=== PATIENT | female | born 1985 | race Two or more races ===

== ENCOUNTER 2018-01-18 23:27 | Inpatient (IN) | payer MEDICAID ==
[~2018-01-18] VITALS: Ht 160 cm; Wt 102.0 kg
[2018-01-19] MEDS ORDERED: TERBUTALINE 1 MG/ML, 1ML ONE (00:30)
[2018-01-19] MEDS ORDERED: TERBUTALINE 1 MG/ML, 1ML SQ ONE (00:30)
[2018-01-19] MEDS ORDERED: BETAMETHASONE 6 MG/ML, 5ML IM ONE (00:32)
[2018-01-19] MEDS: BETAMETHASONE 6 MG/ML, 5ML IM SCH (00:58)
[2018-01-19] MEDS ORDERED: PLEASE ENTER HEIGHT AND WEIGHT MC SCH (01:00)
[2018-01-19 08:51] VITALS: BP 105/57
[2018-01-19] MEDS ORDERED: DOCUSATE 100 MG CAPSULE PO SCH (21:00)
[2018-01-20] MEDS: BETAMETHASONE 6 MG/ML, 5ML IM SCH (01:19)
[2018-01-20] MEDS ORDERED: DOCUSATE 100 MG CAPSULE ONE (07:45)
[2018-01-20] MEDS ORDERED: PRENATAL VIT/IRON/FA 1 EACH TABLET ONE (07:45)
[2018-01-20 07:50] VITALS: BP 113/60
[2018-01-20] MEDS ORDERED: PRENATAL VIT/IRON/FA 1 EACH TABLET PO SCH (09:00)
[2018-01-20] MEDS ORDERED: INSULIN NPH HUMAN 100 UNIT/ML, 3ML VIAL SQ-INSULIN ONE (13:30)
== END 2018-01-20 15:10 | disposition home or self-care (01) | DRG 782 ==
LOC: LDOP 23:27 → LDIP 01-19 00:32
PROVIDERS: ADMIT Obstetrics & Gynecology; ATTEND Obstetrics & Gynecology
DX: O26.873 Cervical shortening, third trimester (principal); Z3A.28 28 weeks gestation of pregnancy
CPT/HCPCS: 36415; 76815; 82951; 82962; J0702; J1815; J3105

== ENCOUNTER 2018-01-23 07:46 | Inpatient (IN) | payer MEDICAID ==
[~2018-01-23] VITALS: Ht 160 cm; Wt 102.3 kg
[2018-01-23] MEDS ORDERED: LACTATED RINGERS 1,000 ML IV SCH (08:00)
[2018-01-23] MEDS ORDERED: LACTATED RINGERS 1,000 ML IVBOLUS ONE (08:00)
[2018-01-23] MEDS ORDERED: MAGNESIUM SULFATE PMX 4GM/100M 100 ML IVPB ONE ×2 (08:00)
[2018-01-23] MEDS ORDERED: MAGNESIUM SULF. PMX 20GM/500ML 500 ML IV ONE ×2 (08:09→16:47)
[2018-01-23] MEDS ORDERED: ONDANSETRON 2MG/ML, 2ML ONE (08:09)
[2018-01-23] MEDS ORDERED: PLEASE ENTER HEIGHT AND WEIGHT MC SCH (08:30)
[2018-01-23] MEDS ORDERED: ONDANSETRON 2MG/ML, 2ML IVPush PRN (08:30)
[2018-01-23 08:48] LABS: BASOPHILS # (AUTO) 0.04 x10^3/uL (0-0.1); BASOPHILS % (AUTO) 0 % (0-1); EOSINOPHILS # (AUTO) 0.17 x10^3/uL (0-0.4); EOSINOPHILS % (AUTO) 2 % (1-7); LYMPHOCYTES # (AUTO) 2.17 x10^3/uL (1-3.4); LYMPHOCYTES % (AUTO) 20 % (22-44); MD NO; MEAN CORPUSCULAR HEMOGLOBIN 29.3 pg (27.0-34.8); MEAN CORPUSCULAR HGB CONC 33.9 g/dL (32.4-35.8); MEAN CORPUSCULAR VOLUME 86.3 fL (80-100); MEAN PLATELET VOLUME 8.2 fL (7.4-10.4); MONOCYTES # (AUTO) 0.75 x10^3/uL (0.2-0.8); MONOCYTES % (AUTO) 7 % (2-9); NEUTROPHILS # (AUTO) 7.55 x10^3/uL (1.8-6.8); NEUTROPHILS % (AUTO) 71 % (42-75); PLATELET COUNT 332 x10^3/uL (130-400); RED BLOOD COUNT 4.45 x10^6/uL (3.82-5.3); RED CELL DISTRIBUTION WIDTH 13.1 % (9.6-15.2)
[2018-01-23 14:48] LABS: AMPHETAMINE SCREEN, URINE Negative (Negative); BARBITURATE SCREEN, URINE Negative (Negative); BENZODIAZEPINE SCREEN, URINE Negative (Negative); CANNABINOID SCREEN, URINE Negative (Negative); COCAINE SCREEN, URINE Negative (Negative); METHADONE SCREEN, URINE Negative (Negative); OPIATE SCREEN, URINE Negative (Negative)
[2018-01-23] MEDS: MAGNESIUM SULF. PMX 20GM/500ML 500 ML IV SCH ×2 (16:55→17:49)
[2018-01-23 20:20] VITALS: BP 125/71
[2018-01-23] MEDS ORDERED: AMPICILLIN 2 GM in SODIUM CHLORIDE 0.9% 100 ML IVPB STA (21:04)
[2018-01-23] MEDS ORDERED: AMPICILLIN 1 GM in SODIUM CHLORIDE 0.9% 100 ML IVPB SCH (21:30)
[2018-01-23] MEDS ORDERED: ERYTHROMYCIN 250 MG in SODIUM CHLORIDE 0.9% 100 ML IV SCH (21:30)
[2018-01-23] MEDS: AMPICILLIN 2 GM in SODIUM CHLORIDE 0.9% 100 ML IV SCH (21:30)
[2018-01-23 22:25] LABS: CULTURE INDICATED? YES; MICROSCOPIC INDICATED
[2018-01-23] MEDS: AZITHROMYCIN 500 MG in SODIUM CHLORIDE 0.9% 250 ML IV SCH (23:11)
[2018-01-24] MEDS ORDERED: MAGNESIUM SULF. PMX 20GM/500ML 500 ML IV ONE ×3 (01:15→23:14)
[2018-01-24] MEDS: MAGNESIUM SULF. PMX 20GM/500ML 500 ML IV SCH ×3 (01:24→23:19)
[2018-01-24 01:40] VITALS: BP 120/61
[2018-01-24] MEDS: AMPICILLIN 2 GM in SODIUM CHLORIDE 0.9% 100 ML IV SCH ×4 (03:23→21:20)
[2018-01-24 05:19] VITALS: BP 118/71
[2018-01-24] MEDS ORDERED: LACTATED RINGERS 1,000 ML IV SCH (08:00)
[2018-01-24] MEDS ORDERED: PRENATAL VIT/IRON/FA 1 EACH TABLET ONE (09:47)
[2018-01-24] MEDS ORDERED: DOCUSATE 100 MG CAPSULE ONE ×2 (09:47→21:12)
[2018-01-24] MEDS: PRENATAL VIT/IRON/FA 1 EACH TABLET PO SCH (09:49)
[2018-01-24] MEDS: DOCUSATE 100 MG CAPSULE PO SCH ×2 (09:49→21:18)
[2018-01-24] MEDS: AZITHROMYCIN 500 MG in SODIUM CHLORIDE 0.9% 250 ML IV SCH (23:19)
[2018-01-25] MEDS: AMPICILLIN 2 GM in SODIUM CHLORIDE 0.9% 100 ML IV SCH ×2 (03:34→09:35)
[2018-01-25] MEDS ORDERED: PRENATAL VIT/IRON/FA 1 EACH TABLET ONE (07:40)
[2018-01-25] MEDS ORDERED: DOCUSATE 100 MG CAPSULE ONE ×2 (07:40→20:41)
[2018-01-25] MEDS: PRENATAL VIT/IRON/FA 1 EACH TABLET PO SCH (07:43)
[2018-01-25] MEDS: DOCUSATE 100 MG CAPSULE PO SCH ×2 (07:44→20:54)
[2018-01-25 08:03] VITALS: BP 111/65
[2018-01-25] MEDS ORDERED: MAGNESIUM SULF. PMX 20GM/500ML 500 ML IV ONE (08:27)
[2018-01-25 10:53] LABS: BASOPHILS # (AUTO) 0.04 x10^3/uL (0-0.1); BASOPHILS % (AUTO) 0 % (0-1); EOSINOPHILS # (AUTO) 0.19 x10^3/uL (0-0.4); EOSINOPHILS % (AUTO) 2 % (1-7); LYMPHOCYTES # (AUTO) 1.77 x10^3/uL (1-3.4); LYMPHOCYTES % (AUTO) 16 % (22-44); MD NO; MEAN CORPUSCULAR HEMOGLOBIN 29.8 pg (27.0-34.8); MEAN CORPUSCULAR HGB CONC 34.5 g/dL (32.4-35.8); MEAN CORPUSCULAR VOLUME 86.3 fL (80-100); MEAN PLATELET VOLUME 7.9 fL (7.4-10.4); MONOCYTES % (AUTO) 7 % (2-9); NEUTROPHILS # (AUTO) 8.16 x10^3/uL (1.8-6.8); NEUTROPHILS % (AUTO) 75 % (42-75); PLATELET COUNT 322 x10^3/uL (130-400); RED BLOOD COUNT 4.17 x10^6/uL (3.82-5.3); RED CELL DISTRIBUTION WIDTH 13.5 % (9.6-15.2)
[2018-01-25] MEDS ORDERED: PROGESTERONE 200 MG VG SCH (21:30)
[2018-01-26] MEDS ORDERED: PRENATAL VIT/IRON/FA 1 EACH TABLET ONE (07:57)
[2018-01-26] MEDS ORDERED: DOCUSATE 100 MG CAPSULE ONE (07:57)
[2018-01-26] MEDS: PRENATAL VIT/IRON/FA 1 EACH TABLET PO SCH (07:58)
[2018-01-26] MEDS: DOCUSATE 100 MG CAPSULE PO SCH (07:58)
[2018-01-26] MEDS ORDERED: SODIUM CHLORIDE FLUSH 3ML SYRINGE IVF SCH (09:00)
[2018-01-26] MEDS ORDERED: PREN1TAB60 PO (12:38)
[2018-01-26] MEDS ORDERED: PROG200C2 VG (12:38)
== END 2018-01-26 12:48 | disposition home or self-care (01) | DRG 781 ==
LOC: LDOP 07:46 → LDIP 07:51
PROVIDERS: ADMIT Obstetrics & Gynecology; ATTEND Obstetrics & Gynecology
PROC: 0T9B70Z Drainage of Bladder with Drainage Device, Via Natural or Artificial Opening (ICD-10-PCS; principal; 2018-01-23)
DX: O26.873 Cervical shortening, third trimester (principal); O99.343 Other mental disorders complicating pregnancy, third trimester; O45.93 Premature separation of placenta, unspecified, third trimester; O44.43 Low lying placenta NOS or without hemorrhage, third trimester; F32.9 Major depressive disorder, single episode, unspecified; O24.414 Gestational diabetes mellitus in pregnancy, insulin controlled; Z3A.29 29 weeks gestation of pregnancy
CPT/HCPCS: 36415; 76815; 80307; 81001; 82947; 82962; 83735; 85025; 85384; 86850; 86900; 86923; 87077; 87081; 87086; 87186; J0290; J0456; J2405; J3475; J7050; J7120

== ENCOUNTER 2018-03-16 11:01 | Inpatient (IN) | payer MEDICAID ==
[~2018-03-16] VITALS: Ht 160 cm; Wt 102.2 kg
[~2018-03-16 11:01] MED LIST: PREN1TAB60 PO; PROG200C2 VG
[2018-03-16 11:14] VITALS: BP 115/63
[2018-03-16] MEDS ORDERED: NPH,100V SQ ×2 (11:41)
[2018-03-16] MEDS ORDERED: INSU100I11 SQ (11:41)
[2018-03-16] MEDS ORDERED: OXYTOCIN 30U/ 0.9% NaCL 500ML 500 ML IV PRN (12:08)
[2018-03-16] MEDS ORDERED: OXYTOCIN 30U/ 0.9% NaCL 500ML 500 ML IV ONE (12:08)
[2018-03-16] MEDS ORDERED: FENTANYL PF 100 MCG/2ML IVPush PRN (12:30)
[2018-03-16] MEDS ORDERED: ONDANSETRON 2MG/ML, 2ML IVPush PRN (12:30)
[2018-03-16] MEDS ORDERED: METOCLOPRAMIDE 5 MG/ML, 2ML IVPush PRN (12:30)
[2018-03-16] MEDS ORDERED: FENTANYL PF 100 MCG/2ML IV PRN (12:30)
[2018-03-16] MEDS ORDERED: TERBUTALINE 1 MG/ML, 1ML IVPush PRN (12:30)
[2018-03-16] MEDS ORDERED: SODIUM CITRATE/CITRIC ACID 30 ML UDC PO PRN (12:30)
[2018-03-16] MEDS: LACTATED RINGERS 1,000 ML IV SCH ×2 (12:35→23:46)
[2018-03-16 12:43] LABS: BASOPHILS # (AUTO) 0.04 x10^3/uL (0-0.1); BASOPHILS % (AUTO) 0 % (0-1); EOSINOPHILS # (AUTO) 0.11 x10^3/uL (0-0.4); EOSINOPHILS % (AUTO) 1 % (1-7); LYMPHOCYTES # (AUTO) 1.96 x10^3/uL (1-3.4); LYMPHOCYTES % (AUTO) 20 % (22-44); MD NO; MEAN CORPUSCULAR HEMOGLOBIN 28.5 pg (27.0-34.8); MEAN CORPUSCULAR HGB CONC 33.9 g/dL (32.4-35.8); MEAN CORPUSCULAR VOLUME 84.1 fL (80-100); MEAN PLATELET VOLUME 8.4 fL (7.4-10.4); MONOCYTES # (AUTO) 0.57 x10^3/uL (0.2-0.8); MONOCYTES % (AUTO) 6 % (2-9); NEUTROPHILS # (AUTO) 7.37 x10^3/uL (1.8-6.8); NEUTROPHILS % (AUTO) 73 % (42-75); PLATELET COUNT 297 x10^3/uL (130-400); RED BLOOD COUNT 4.75 x10^6/uL (3.82-5.3); RED CELL DISTRIBUTION WIDTH 13.6 % (9.6-15.2)
[2018-03-16] MEDS ORDERED: LIDOCAINE/PF 1%, 30ML ONE (12:47)
[2018-03-16] MEDS ORDERED: MISOPROSTOL 200 MCG TABLET ONE (12:47)
[2018-03-16] MEDS ORDERED: OXYTOCIN 30U/ 0.9% NaCL 500ML 500 ML ONE (12:47)
[2018-03-16] MEDS ORDERED: NEWBORN KIT ONE (12:47)
[2018-03-16] MEDS ORDERED: D5%-LACTATED RINGERS 1,000 ML IV SCH (16:30)
[2018-03-16] MEDS ORDERED: FENTANYL/BUPIV./NS/PF 250 ML EPIDCONT SCH (20:20)
[2018-03-16] MEDS ORDERED: LACTATED RINGERS 1,000 ML IV SCH (20:20)
[2018-03-16] MEDS ORDERED: NALOXONE 0.4 MG/ML, 1ML IVPush PRN (20:30)
[2018-03-16] MEDS ORDERED: EPHEDRINE 50 MG/ML, 1ML IVPush PRN (20:30)
[2018-03-16] MEDS ORDERED: LACTATED RINGERS 1,000 ML IVBOLUS PRN (20:30)
[2018-03-16] MEDS ORDERED: FENTANYL PF 100 MCG/2ML ONE (23:38)
[2018-03-17] MEDS ORDERED: FENTANYL PF 100 MCG/2ML ONE ×2 (00:37→02:09)
[2018-03-17] MEDS: OXYTOCIN 30U/ 0.9% NaCL 500ML 500 ML IV SCH ×4 (02:24→23:40)
[2018-03-17] MEDS ORDERED: OXYTOCIN 30U/ 0.9% NaCL 500ML 500 ML ONE (02:45)
[2018-03-17] MEDS ORDERED: IBUPROFEN 600 MG TABLET ONE (03:38)
[2018-03-17] MEDS: IBUPROFEN 600 MG TABLET PO PRN ×4 (03:44→22:55)
[2018-03-17] MEDS ORDERED: MISOPROSTOL 200 MCG TABLET PR PRN (04:00)
[2018-03-17] MEDS ORDERED: MEASLES,MUMPS&RUBELLA VACC/PF 0.5 ML SQ PRN (04:00)
[2018-03-17] MEDS ORDERED: ACETAMINOPHEN 325 MG TABLET PO PRN ×2 (04:00)
[2018-03-17 05:30] VITALS: BP 103/66
[2018-03-17 07:30] VITALS: BP 108/73
[2018-03-17] MEDS: PRENATAL VIT/IRON/FA 1 EACH TABLET PO SCH (09:16)
[2018-03-17] MEDS: DOCUSATE 100 MG CAPSULE PO PRN ×2 (09:16→22:55)
[2018-03-17 10:25] LABS: HEMOGRAM NOTE RECHECKED; MEAN CORPUSCULAR HEMOGLOBIN 28.8 pg (27.0-34.8); MEAN CORPUSCULAR HGB CONC 34.5 g/dL (32.4-35.8); MEAN CORPUSCULAR VOLUME 83.4 fL (80-100); MEAN PLATELET VOLUME 8.2 fL (7.4-10.4); PLATELET COUNT 286 x10^3/uL (130-400); RED BLOOD COUNT 3.66 x10^6/uL (3.82-5.3); RED CELL DISTRIBUTION WIDTH 13.7 % (9.6-15.2)
[2018-03-17 12:05] VITALS: BP 108/64
[2018-03-17 12:06] LABS: MD SCAN
[2018-03-17 12:07] LABS: BASOPHILS % (AUTO) 0 % (0-1); EOSINOPHILS % (AUTO) 0 % (1-7); LYMPHOCYTES # (AUTO) 1.18 x10^3/uL (1-3.4); LYMPHOCYTES % (AUTO) 9 % (22-44); MONOCYTES # (AUTO) 0.67 x10^3/uL (0.2-0.8); MONOCYTES % (AUTO) 5 % (2-9); NEUTROPHILS # (AUTO) 10.94 x10^3/uL (1.8-6.8); NEUTROPHILS % (AUTO) 86 % (42-75)
[2018-03-17 16:32] VITALS: BP 109/71
[2018-03-17 19:30] VITALS: BP 105/69
[2018-03-18] MEDS ORDERED: DIPH,PERTUSS(ACELL),TET VAC/PF NC IM-VACC ONE ×2 (03:45→03:53)
[2018-03-18 07:56] VITALS: BP 100/58
[2018-03-18] MEDS: OXYTOCIN 30U/ 0.9% NaCL 500ML 500 ML IV SCH ×2 (08:24→09:40)
[2018-03-18] MEDS: PRENATAL VIT/IRON/FA 1 EACH TABLET PO SCH (09:00)
[2018-03-18] MEDS ORDERED: IBUP-1222 PO (09:18)
== END 2018-03-18 13:14 | disposition home or self-care (01) | DRG 775 ==
LOC: LDOP 11:01 → LDIP 12:10 → 2NW 03-17 04:10
PROVIDERS: ADMIT Obstetrics & Gynecology; ATTEND Obstetrics & Gynecology
PROC: 10E0XZZ Delivery of Products of Conception, External Approach (ICD-10-PCS; principal; 2018-03-17)
PROC: 0KQM0ZZ Repair Perineum Muscle, Open Approach (ICD-10-PCS; 2018-03-17)
PROC: 3E0R3BZ Introduction of Anesthetic Agent into Spinal Canal, Percutaneous Approach (ICD-10-PCS; 2018-03-17)
PROC: 00HU33Z Insertion of Infusion Device into Spinal Canal, Percutaneous Approach (ICD-10-PCS; 2018-03-17)
DX: O24.424 Gestational diabetes mellitus in childbirth, insulin controlled (principal); O42.013 Preterm premature rupture of membranes, onset of labor within 24 hours of rupture, third trimester; O70.1 Second degree perineal laceration during delivery; O99.344 Other mental disorders complicating childbirth; F32.9 Major depressive disorder, single episode, unspecified; Z79.4 Long term (current) use of insulin; Z3A.36 36 weeks gestation of pregnancy; Z37.0 Single live birth
CPT/HCPCS: 36415; J7121; 82962; 85025; 86850; 86900; 90715; G0378; J3010; J2590; J7120